=== PATIENT | male | born 1975 | race Hispanic/Latino ===

== ENCOUNTER 2018-09-01 23:29 | Emergency (ER) | payer SELFPAY ==
[2018-09-01 23:38] VITALS: RESP 18
[2018-09-02] MEDS ORDERED: Lidocaine 2% Inj (20ml) ONE (00:05)
[2018-09-02] MEDS ORDERED: Lidocaine 1% Inj (20ml) IJ ONE (00:17)
[2018-09-02] MEDS ORDERED: Lidocaine 2% GEL EXT ONE (00:21)
--- NOTE | 2018-09-02 00:24 | ED PDOC ---
HPI: Dental Pain/Injury Time Seen by Provider: 09/01/18 23:58 Chief Complaint (Nursing): Dental Pain Chief Complaint (Provider): Fractured Tooth History Per: Patient History/Exam Limitations: no limitations Onset/Duration Of Symptoms: Hrs (three) Current Symptoms Are (Timing): Still Present Severity: Moderate (Pt presents to the ED complaining of significant dental pain resulting from a tooth injury sustained earlier in the day. Pt indicates that he was eating diner when his molar fractured causing him a great deal of pain. Pt advised that he does have an appointment with his dentist on Tuesday (two days); pt denies fever, pleading or other trauma) Quality: Sharp, Aching Past Medical History Reviewed: Historical Data, Nursing Documentation, Vital Signs Vital Signs: Last Vital Signs Temp 98.1 F 09/01/18 23:33 Pulse 110 H 09/01/18 23:33 Resp 18 09/01/18 23:33 BP 142/99 H 09/01/18 23:33 Pulse Ox 98 09/01/18 23:33 - Medical History PMH: Pneumonia Denies: Chronic Kidney Disease - Family History Family History: States: Unknown Family Hx - Home Medications Home Medications: Ambulatory Orders Medication Instructions Recorded Acetaminophen with Codeine 1 tab PO QID #10 tablet 09/02/18 [Tylenol with Codeine #3 Tablet] Lidocaine 2% Viscous 5 ml TOP QID #100 ml 09/02/18 - Allergies Allergies/Adverse Reactions: Allergies Allergy/AdvReac Type Severity Reaction Status Date / Time No Known Allergies Allergy Verified 09/01/18 23:38 Review of Systems ROS Statement: Except As Marked, All Systems Reviewed And Found Negative ENT: Positive for: Other (tooth pain) Physical Exam - Reviewed Nursing Documentation Reviewed: Yes Vital Signs Reviewed: Yes - Physical Exam Appears: Positive for: Well, Uncomfortable Head Exam: Positive for: ATRAUMATIC, NORMAL INSPECTION Skin: Positive for: Normal Color, Warm, Dry. Negative for: Diaphoresis, Pallor, Rash ENT: Positive for: Other (patient has poor dentition; noted is a posterior fracture to tooth number 2; tooth number 1 is absent. There is no infection, redness, swelling, drainage or discharge. there is no bleeding noted. The pt oral mucosa is otherwise pink and moist) Neck: Positive for: Normal, Painless ROM, Supple. Negative for: Decreased ROM Cardiovascular/Chest: Positive for: Regular Rate, Rhythm Respiratory: Positive for: Normal Breath Sounds - ECG O2 Sat by Pulse Oximetry: 98 Medical Decision Making Medical Decision Making: I: Dental Fx P: Provide temporal relief by way of an inferior alveolar injection with 2% lidocaine without epi 3ml of injectate was delivered; pt experienced immediate relief Topical viscous lidocaine was applied after injection RX: apap #3 and viscous lidocaine Pt is pain free and stable at discharge Disposition - Clinical Impression Clinical Impression: Fractured tooth - Patient ED Disposition Is Patient to be Admitted: No Counseled Patient/Family Regarding: Diagnosis, Need For Followup, Rx Given - Disposition Disposition: Routine/Home Disposition Time: 00:39 Condition: STABLE Additional Instructions: pt will follow up with his dental provider as scheduled on TuesdaySep 03 Prescriptions: Acetaminophen with Codeine [Tylenol with Codeine #3 Tablet] 1 tab PO QID #10 tablet Lidocaine 2% Viscous 5 ml TOP QID #100 ml
[2018-09-02 01:17] VITALS: BP 133/85; PULSE 98; TEMP 98; O2SAT 99
== END 2018-09-02 00:50 | disposition home or self-care (01) ==
LOC: H.ER 23:29
DX: S02.5XXA Fracture of tooth (traumatic), initial encounter for closed fracture (principal); X58.XXXA Exposure to other specified factors, initial encounter; Y92.89 Other specified places as the place of occurrence of the external cause